=== PATIENT | female | born 1990 | race Two or more races ===

== ENCOUNTER 2023-05-04 09:50 | Inpatient (IN) ==
[2023-05-04 10:11] VITALS: BMI 30.4
[2023-05-04 10:15] LABS: BILIRUBIN,URINE NEGATIVE (NEGATIVE); BLOOD/HEMOGLOBIN,URINE 5+ (NEGATIVE); GLUCOSE, URINE NEGATIVE (NEGATIVE); KETONES,URINE NEGATIVE (NEGATIVE); LEUKOCYTE ESTERASE ,URINE 3+ (NEGATIVE); NITRITES,URINE NEGATIVE (NEGATIVE); PROTEIN,URINE 2+ (NEGATIVE); UROBILINOGEN,URINE 1+ (NORMAL)
[2023-05-04] MEDS ORDERED: PITOCIN IVP ONE (10:19)
[2023-05-04] MEDS ORDERED: OXYTOCIN 20 UNIT/1,000 ML-NS 20 UNIT/1,000 ML PLAST..BAG IV PRN (10:19)
[2023-05-04] MEDS ORDERED: REGLAN INJ 10 MG VIAL IVP PRN (10:19)
[2023-05-04] MEDS ORDERED: ZOFRAN INJ 4 MG VIAL IVP PRN (10:19)
[2023-05-04] MEDS ORDERED: NUBAIN INJ 20 MG AMP IVP PRN (10:19)
[2023-05-04 10:26] LABS: AMNISURE ROM TEST NO MEMBRANES RUPTURE (NO RUPTURE)
[2023-05-04 10:30] LABS: APPEARANCE,URINE HAZY (CLEAR); BACTERIA,URINE 2+ /HPF (NEGATIVE); COLOR,URINE DARK YELLOW (YELLOW); RBC,URINE 0-2 /HPF (0-3); SQUAMOUS EPITHELIAL CELL,UR NUMEROUS /HPF (NEGATIVE)
[2023-05-04] MEDS ORDERED: AQUA-MEPHYTON NEONATAL IM ONE (10:31)
[2023-05-04] MEDS ORDERED: ILOTYCIN OPHTH OINT ONE (10:31)
[2023-05-04] MEDS ORDERED: LR 1,000 ML IV 1,000 ML IV ONE (10:37)
[2023-05-04 10:48] LABS: BASOPHILS # (AUTO) 0.1 X10^3/uL (0.0-0.1); BASOPHILS % (AUTO) 0.6 % (0.2-1.0); EOSINOPHILS # (AUTO) 0.1 x10^3/uL (0.0-0.2); EOSINOPHILS % (AUTO) 0.9 % (0.9-2.9); HEMATOCRIT 34.3 % (36.0-47.0); HEMOGLOBIN 11.6 g/dL (12.0-16.0); LYMPHOCYTES % (AUTO) 18.3 % (21.0-51.0); MEAN CORPUSCULAR HEMOGLOBIN 29.8 pg (27.0-34.0); MEAN CORPUSCULAR HGB CONC 33.7 g/dL (33.0-35.0); MEAN CORPUSCULAR VOLUME 88.4 fL (80.0-100.0); MEAN PLATELET VOLUME 8.8 fL (7.4-11.0); MONOCYTES # (AUTO) 0.7 x10^3/uL (0.3-0.8); NEUTROPHILS # (AUTO) 8.2 x10^3/uL (2.2-4.8); NEUTROPHILS % (AUTO) 74.2 % (42.0-75.0); PLATELET COUNT 282 X10^3/uL (150.0-450.0); RED BLOOD COUNT 3.88 X10^6/uL (3.5-5.4); RED CELL DISTRIBUTION WIDTH 13.1 % (11.6-16.5); WHITE BLOOD COUNT 11.1 X10^3/uL (3.6-10.0)
[2023-05-04] MEDS ORDERED: LR 1,000 ML IV 1,000 ML IV SCH (11:00)
[2023-05-04 11:01] LABS: ALANINE AMINOTRANSFERASE 17 Units/L (12-78); ALBUMIN 2.4 g/dL (3.4-5.0); ALKALINE PHOSPHATASE 218 Units/L (46-116); ASPARTATE AMINO TRANSFERASE 25 Units/L (15-37); BLOOD UREA NITROGEN 11 mg/dL (7-18); CARBON DIOXIDE 21.1 mmol/L (21-32); CHLORIDE 102 mmol/L (98-107); COR CA(FOR HYPOALB) 10.3 mg/dL (8.5-10.1); CREATININE 0.55 mg/dL (0.55-1.02); GLUCOSE 95 mg/dL (65-99); POTASSIUM 3.8 mmol/L (3.5-5.1); SODIUM 131 mmol/L (136-145); TOTAL PROTEIN 6.9 g/dL (6.4-8.2); eGFR NON BLACK RACES > 60 (>60)
[2023-05-04] MEDS ORDERED: PITOCIN ONE (11:21)
--- NOTE | 2023-05-04 11:59 | DR.OB ---
OB QUICK NOTE Assessment/Plan (1) Active labor at term: Assessment/Plan: L&D 05/04/23 at 11:55am S-No complaint except CTX. O-Afebrile,VSS LCG=453 with good LTV, +accel, no decel. CTX=q 1 1/2 to 2 min., strong by palpation CVX=8cm/75%/0/VTX AROM with clear fluid. A-IUP at 37 4/7 weeks in active labor P-Anticipate
--- NOTE | 2023-05-04 13:38 | DR.OB ---
OB QUICK NOTE Assessment/Plan (1) Active labor at term: Assessment/Plan: Delivery Note CONSERVATION SPECIALIST 05/04/23 at 13:12 Patient complete and pushing. Head delivered over intact perineum. No nuchal cord. Nose and mouth bulb suctioned. Body delivered over intact perineum. Cord clamped x 2 and cut. handed to attendant. Cord sent for gases. Placenta delivered spontaneously / intact / 3 vessel cord. A second degree midline tear noted and repaired with 0-vicryl in usual fashion. No CVX tear noted. Viable male delivered by , VTX/OA, wt=7'12" and 8/9, stable to NBN. Mother stable to RR. DSH=[id number].
[2023-05-04] MEDS ORDERED: MOTRIN TAB 800 MG PO PRN ×2 (13:39→15:32)
[2023-05-04] MEDS ORDERED: XYLOCAINE-MPF 1% ONE (14:32)
[2023-05-04] MEDS ORDERED: DERMOPLAST PAIN RELIEF SPRAY TOP PRN (15:32)
[2023-05-04] MEDS ORDERED: MILK OF MAGNESIA PO PRN (15:32)
[2023-05-04] MEDS ORDERED: AMBIEN PO PRN (15:32)
[2023-05-04] MEDS ORDERED: ADACEL or BOOSTRIX TDaP VACCINE IM ONE (15:32)
[2023-05-04] MEDS: OXYTOCIN 20 UNIT/1,000 ML-NS 20 UNIT/1,000 ML PLAST..BAG IV SCH (15:34)
[2023-05-05 05:27] LABS: HEMATOCRIT 24.9 % (36.0-47.0)
[2023-05-05 06:07] LABS: HEMOGLOBIN 8.2 g/dL (12.0-16.0)
[2023-05-05] MEDS ORDERED: PRENATAL PLUS PO SCH (09:00)
[2023-05-05 09:13] VITALS: RESP 18
[2023-05-05] MEDS ORDERED: ADACEL or BOOSTRIX TDaP VACCINE IM ONE (12:39)
[2023-05-05 13:03] VITALS: BP 120/58; PULSE 73; TEMP 97.5; O2SAT 98
[2023-05-05] MEDS: OXYTOCIN 20 UNIT/1,000 ML-NS 20 UNIT/1,000 ML PLAST..BAG IV SCH (15:11)
== END 2023-05-05 16:45 | disposition home or self-care (01) | DRG 807 ==
LOC: ER 09:50 → LD 10:19 → MED/SURG 14:46
PROVIDERS: ADMIT Specialist; ATTEND Specialist
DX: O70.1 Second degree perineal laceration during delivery; Z37.0 Single live birth; Z3A.37 37 weeks gestation of pregnancy; O26.893 Other specified pregnancy related conditions, third trimester